=== PATIENT | female | born 1945 | race Caucasian/White ===

== ENCOUNTER → 2023-11-21 09:38 | Outpatient (REF) | payer MEDICARE, OTHER, SELFPAY ==
[2023-11-21 10:18] LABS: % Basophils 0.6 % (0-2); % Eosinophils 1.1 % (0-6); % Immature Granulocytes 0.5 % (0-0.5); % Monocytes 6.5 % (1.7-9.3); % Neutrophils 73.3 % (42.2-75.2); Absolute Basophils 0.1 10^3/uL (0-0.2); Absolute Eosinophils 0.1 10^3/uL (0-0.7); Absolute Lymphocytes 1.5 10^3/uL (1.2-3.4); Absolute Monocytes 0.5 10^3/uL (0.1-0.6); Hematocrit 38.8 % (37.0-47.0); Hemoglobin 13.3 g/dL (12.0-16.0); Mean Corp Hgb Conc. 34.3 g/dL (33.0-37.0); Mean Corpuscular Hgb 28.1 pg (27.0-31.0); Mean Corpuscular Volume 81.9 fL (81.0-99.0); Mean Platelet Volume 9.2 fL (7.4-10.4); Nucleated Red Blood Cells % 0 %; Platelet Count 247 10^3/uL (130-400); Red Blood Cell Count 4.74 10^6/uL (4.20-5.40); White Blood Cell Count 8.2 10^3/uL (4.8-10.8)
[2023-11-21 10:43] LABS: ALT (SGPT) 19 U/L (0-35); AST (SGOT) 27 U/L (14-36); Alkaline Phosphatase 128 U/L (38-126); Blood Urea Nitrogen 21 mg/dl (7-17); Calcium 9.7 mg/dl (8.4-10.2); Carbon Dioxide 23 mmol/L (22-30); Chloride 108 mmol/L (98-107); Glucose 130 mg/dl (70-99); HDL Cholesterol 53 mg/dl; LDL Cholesterol, Calculated 39 mg/dl; Potassium 4.5 mmol/L (3.5-5.1); Sodium 139 mmol/L (135-145); Total Cholesterol 108 mg/dl (50-199); Total Protein 7.9 g/dl (6.3-8.2); Triglyceride 82 mg/dl (10-149); Very Low Density Lipoprotein 16 mg/dl (0-30); eGFR > 60.00
[2023-11-21 12:50] LABS: Glycohemoglobin (HgbA1c) 6.3 % (4.0-5.6)
== END ==
LOC: RAD 09:38
PROVIDERS: ATTENDING PHYSICIAN Physician Assistant
DX: R73.03 Prediabetes (principal); E78.2 Mixed hyperlipidemia; I48.0 Paroxysmal atrial fibrillation; R07.81 Pleurodynia
CPT/HCPCS: 36415; 71111; 80053; 80061; 83036; 85025

== ENCOUNTER → 2023-12-04 11:02 | Outpatient (REF) | payer MEDICARE, OTHER, SELFPAY | LOC: HWRAD 11:02 | PROVIDERS: ATTENDING PHYSICIAN Physician Assistant | DX: R91.8 Other nonspecific abnormal finding of lung field (principal) | CPT/HCPCS: 71260; Q9967 ==

== ENCOUNTER 2024-01-12 02:13 | Inpatient (IN) | payer MEDICARE, OTHER, SELFPAY ==
[2024-01-11 20:37] VITALS: BP 155/92
[2024-01-11 20:56] VITALS: BMI 34.5
[2024-01-11 21:05] LABS: % Basophils 0.7 % (0-2); % Eosinophils 0.4 % (0-6); % Immature Granulocytes 0.6 % (0-0.5); % Lymphocytes 16.1 % (20.5-51.1); % Monocytes 6.2 % (1.7-9.3); Absolute Basophils 0.1 10^3/uL (0-0.2); Absolute Immature Granulocytes 0.1 10^3/uL (0-0.05); Absolute Lymphocytes 1.8 10^3/uL (1.2-3.4); Absolute Monocytes 0.7 10^3/uL (0.1-0.6); Absolute Neutrophils 8.3 10^3/uL (1.4-6.5); Hematocrit 41.3 % (37.0-47.0); Mean Corp Hgb Conc. 33.9 g/dL (33.0-37.0); Mean Corpuscular Volume 82.6 fL (81.0-99.0); Mean Platelet Volume 9.2 fL (7.4-10.4); Nucleated Red Blood Cells % 0 %; Platelet Count 296 10^3/uL (130-400); Red Cell Dist. Width 14.5 % (11.5-14.5); White Blood Cell Count 10.9 10^3/uL (4.8-10.8)
[2024-01-11 21:21] LABS: ALT (SGPT) 16 U/L (0-35); AST (SGOT) 26 U/L (14-36); Albumin 3.9 g/dl (3.5-5.0); Alkaline Phosphatase 134 U/L (38-126); Blood Urea Nitrogen 23 mg/dl (7-17); Calcium 9.6 mg/dl (8.4-10.2); Carbon Dioxide 24 mmol/L (22-30); Chloride 105 mmol/L (98-107); Estimated Creatinine Clearance 74 ml/min; Glucose 126 mg/dl (70-99); Potassium 4.2 mmol/L (3.5-5.1); Sodium 137 mmol/L (135-145); Total Bilirubin 1.2 mg/dl (0.2-1.3); Total Protein 8.2 g/dl (6.3-8.2); eGFR > 60.00
[2024-01-11 21:31] LABS: Troponin I 0.022 ng/ml
[2024-01-11] MEDS: ATIVAN 0.5 MG IV (22:14)
[2024-01-11 22:15] VITALS: BP 130/60
[2024-01-11] MEDS: CARDIZEM 10 MG IV (22:17)
--- NOTE | 2024-01-11 22:50 | ED.GENMED ---
History of Present Illness
General
Chief Complaint: Heart Rate Problem
Source: patient and family
Time Seen by Provider: 01/11/24 21:06
Travel History
Have you had any contact with someone who has COVID-19?: No
Do you have any symptoms of coronavirus? Fever > 100 degrees, chills, cough, shortness of breath, sore throat, loss of taste or smell, muscle aches, or headache?: No
History of Present Illness
History of Present Illness:
78-year-old female with past medical history of hypertension, hyperlipidemia, atrial fibrillation (not anticoagulated), newly diagnosed left lung cancer which patient has decided not to undergo any treatment for, COPD, CVA presenting to the
emergency department from home for evaluation of generally feeling unwell. Patient had an ultrasound at the [facility] and had to stop the procedure about midway through and went home. Upon getting home she told her son that she was not
feeling well and that she needed to come to the emergency department and to call an ambulance. Upon arrival EMS noted patient's heart rate was very rapid and found to be in atrial fibrillation. Patient's son states that she declined to be
anticoagulated and is only taking a 81 mg aspirin. Patient does admit to some slight discomfort in her chest. She states she has not been coughing any more than usual and is denying any hemoptysis, fevers, chills, rigors. Son notes patient did
have some bilateral ankle edema today as well.
Past History
Past History
ED Past Medical History: Arrthythmia (Atrial fib), Cancer, CHF, COPD, CVA, HTN, Hypercholesterolemia, NIDDM and Other (Osteoarthritis,)
ED Past Surgical History: , Gynecological (Tubal ligation) and Orthopedic ( knee arthroscopy, total right knee replacement)
Social History
Tobacco: Former smoker
Alcohol: None
Drug: None
Personal:
Living: with family
Employment: Retired
Review of Systems
Review of Systems
All Other Systems: ROS reviewed and negative except as documented in HPI and ROS
Phy Exam
Physical Exam
Physical Exam:
GENERAL: Alert , in no apparent distress
EYE: pupils equal and reactive
NECK: Supple, no significant adenopathy.
ENT: o/p clr, mmm.
CARDIAC: Irregularly irregular, tachycardic
LUNGS: Diminished lung sounds throughout, mildly tachypneic
ABDOMEN: Soft, without focal tenderness, no r/g, no cvat
NEUROLOGICAL: Alert and oriented, no focal neuro deficits
SKIN: Warm and dry, hyperpigmented and almost ecchymotic skin noted along the left mid to lower back which son noticed 2 days ago but patient is unsure how long this has been there. Nonblanching, nontender and nonraised
MUSCULOSKELETAL: Trace ankle edema bilateral, well perfused.
PSYCH: Normal and appropriate interaction.
Scores
Heart Failure Risk
Heart Failure Risk Score: Not Applicable
Heart Score for Chest Pain Patients
STEMI patient?: Not applicable
Withdrawal Assessment of Alcohol
Withdrawal Assessment Completed?: Not applicable
Course
Orders/Labs/Results
Orders:
Orders
01/11/24 20:34
ECG [Electrocardiogram (*1)] Urgent
Reason for Study: Tachycardia
Other Reason for Exam: left upper back pain
Cardiology Consult: Gopi Solis
01/11/24 20:35
EKG- Treatment ONCE
01/11/24 20:57
Electrocardiogram (*1) Urgent
Reason for Study: Other
Other Reason for Exam: Respiratory Distress
Cardiac Monitoring- Treatment ONCE
EKG- Treatment ONCE
IV Insert/Care/Rem.- Treatment PRN
O2 Therapy [RESP] Urgent
Titrate/Wean O2 to maintain O2 sat greater than (%): 93
Special Instructions: TO MAINTAIN CONTINUOUS O2 SATS >/= 93%
Pulse Ox/cont/shift [RESP] Urgent
Quantity: 1
Special Instructions: continuous pulse ox
01/11/24 20:59
Complete Blood Count/With Diff Urgent
Comprehensive Metabolic Panel Urgent
Troponin I Urgent
01/11/24 21:17
CT Chest Pe Study Urgent
Comment:
Reason For Exam: lung ca, afib, SOB
Diltiazem HCl [Cardizem] 10 mg IV NOW STA
Lorazepam [Ativan] 0.5 mg IV NOW STA
01/12/24 00:39
Oxycodone/Acetaminophen [Percocet 5/325] 1 tablet PO NOW STA
01/12/24 00:44
Morphine Sulfate 2 mg IV NOW STA
01/12/24 00:45
Diltiazem 125 mg/125 ml Nss [Cardizem] 125 mg in 125 ml IV PER PROTOCOL
Initial dose in mg/hr, then titrate:: 5
Titrate to keep:: Heart rate 80-100 bpm
Titrate by mg/hr:: 5 mg/hr
Frequency of titrations (minutes):: 15
Maximum dose in mg/hr:: 15
Abnormal Lab Results
01/11/24
20:59
WBC 10.9 H 10^3/uL
(4.8-10.8)
Abs Immat Gran (auto) 0.1 H 10^3/uL
(0-0.05)
Absolute Neuts (auto) 8.3 H 10^3/uL
(1.4-6.5)
Absolute Monos (auto) 0.7 H 10^3/uL
(0.1-0.6)
Immature Gran % 0.6 H %
(0-0.5)
Neutrophils % 76.0 H %
(42.2-75.2)
Lymphocytes % 16.1 L %
(20.5-51.1)
BUN 23 H mg/dl
(7-17)
Glucose 126 H mg/dl
(70-99)
Alkaline Phosphatase 134 H U/L
(38-126)
01/11/24 20:59
01/11/24 20:59
Vital Signs
Initial and Last Documented VS:
Initial Vital Signs
Temp Pulse Resp BP Pulse Ox
98.3 F 152 23 155/92 96
01/11/24 20:37 01/11/24 20:37 01/11/24 20:37 01/11/24 20:37 01/11/24 20:37
Last Documented Vital Signs
Temp Pulse Resp BP Pulse Ox
98.3 F 114 20 116/70 96
01/11/24 20:37 01/12/24 00:47 01/12/24 00:47 01/12/24 00:47 01/12/24 00:47
MDM/Problems Addressed
Differential Diagnosis Includes:
Progression of lung cancer, pleural effusion, cardiac dysrhythmia, pulmonary embolism, atypical ACS presentation
MDM/Problems Addressed:
78-year-old female presenting to the emergency department for evaluation of generally feeling unwell earlier today, EMS found patient to be in rapid A-fib. On arrival to the emergency department patient's heart rate is persistent 115 and 138 bpm.
Patient is not a cardioversion candidate given she is not anticoagulated. PE also considered given her lung cancer and tachycardia with cough and chest discomfort. Will order CTA of the chest. Cardizem 10 mg IV ordered for rate control. Patient
would likely require admission for continued rate control and further evaluation of her atrial fibrillation
Chronic conditions affecting care: Arrhythmia and Cancer
Acute Exacerbation and/or Progression of Chronic Illness: Arrhythmia and Cancer
*Radiology
Radiology exam reviewed: radiology read reviewed
*Pulse Oximetry
Patient hypoxic: no
*EKG
Interpreted by ED Provider?: Yes
Heart Rate: 139
Rate: tachycardiac
Rhythm: a-fib
Proctor: normal axis
Ischemia: no ischemia
*Tumbler Drier Operator Interpretation
Rate: tachycardiac
Rhythm: a-fib
*Critical Care Note
Total Time (30-74mins, 75-104mins- exclusive of procedures): Not Applicable
Data Reviewed
Review of Other/Old Records Reveals: Labs and Records
Source: patient and family
Patient Management
Discussion with other providers: Hospitalist
Escalation/DeEscalation of care consider admission/obs:
Patient CT shows the following:
No pulmonary embolism, thoracic aneurysm or dissection. Noted mass in the lingula. Cardiomegaly without pericardial effusion. Moderate mediastinal and left hilar lymphadenopathy. There is also now lytic lesion at the T2 vertebral body likely
from metastatic disease.
Patient's heart rate was initially improved with the Cardizem bolus however her heart rate does intermittently go to around 125 beats per minutes will place on the Cardizem drip. Morphine ordered for pain control. Patient to be admitted for
further evaluation and treatment. She will likely require palliative care consultation at some point.
ED Attending Note
-
Portions of this chart may have been created with voice recognition software.� Occasional wrong word or��sound alike� substitutions may have occurred due to the inherent limitations of voice recognition software.
Discharge Plan
Departure
Patient Disposition: Admit
Date of Disposition: 01/12/24
Time of Disposition: 00:45
Presentation/result/management discussed w/ accepting MD/DO: Hospitalist
Discharge Problem:
Atrial fibrillation with rapid ventricular response, Lung cancer metastatic to bone
Prescriptions:
No Action
aspirin 81 MG tablet,delayed release (DR/EC)
81 mg PO DAILY
metoprolol succinate 25 MG tablet extended release 24 hr
50 mg PO BID
Vitamin D (with calcium)
1 tab PO DAILY
atorvastatin 20 MG tablet
20 mg PO QPM Qty: 30 0RF
Referrals:
Carmenza Burns PA-C [Family Provider] -
Interventions
Interventions:
*Risk Screen - Suicide Last Done: 01/11/24 20:50
*General Assessment Last Done: 01/11/24 20:37
*Neglect/Abuse Screening Last Done: 01/11/24 20:37
ED- Fall Risk Assessment Last Done: 01/11/24 20:37
*ED COVID-19 Vaccine History Last Done: 01/11/24 20:37
ED- Cardiac Assessment Last Done: 01/11/24 21:15
ED-Musculoskeletal Assessment Last Done: 01/11/24 21:25
ED- Pulmonary Assessment Last Done: 01/11/24 21:25
Discharge Date and Time
Print Language: DIVEHI
[2024-01-11 23:47] VITALS: BP 123/73
[2024-01-12] VITALS (13 sets, daily range): BP systolic 106–132; BP diastolic 48–91; PULSE 88–140; O2SAT 94; BMI 33.4
[2024-01-12] MEDS: MORPHINE SULFATE 2 MG IV (00:50)
[2024-01-12] MEDS: CARDIZEM 125 IV (00:55)
--- NOTE | 2024-01-12 01:35 | HPS.HSE ---
Family Physician
-
Family Physician: Carmenza Burns PA-C
Chief Complaint
-
fast HR
History of Present Illness
78 y/o F, hx of HTN, HLD, Afib (not on AC by choice), newly diagnoed lung cancer (opted against treatment), COPD, hx of CVA presents with generally feeling unwell. She was at a scheduled US at her PCP office today when she felt unwell and aborted
the US mid-way through. She went home and felt unwell; requested her son call the ambulance. In The ER here, she was found to be in rapid. Afib and cardizem was started. She denies any palpitations, no chest pain or SOB. no other complaints.
Medical History
Past Medical History
Past Medical History: Reports Other (HTN, HLD, Afib (not on AC by choice), newly diagnoed lung cancer (opted against treatment), COPD, hx of CVA)
Past Surgical History: Reports Other ( , Gynecological (Tubal ligation) and Orthopedic ( knee arthroscopy, total right knee replacement))
Social History
Tobacco: Former Smoker
Alcohol: None
Drug: None
Personal:
Living: With Family
Employment: Retired
Family History
Family History: Not pertinent
Allergies / Home Medications
Allergies reflects when Allergies were last updated in [employer].
Home Medications with original date entered in [employer]
Allergy/Medication List:
Allergies
Allergy/AdvReac Type Severity Reaction Status Date / Time
vancomycin Allergy Mild Itching Verified 03/08/23 12:07
NSAIDS (Non-Steroidal Allergy SEE BELOW Verified 03/08/23 12:07
Anti-Inflamma
sulfamethoxazole Allergy Nausea Verified 03/08/23 12:07
[From Bactrim]
tolmetin Allergy Anaphylaxis Verified 03/08/23 12:07
trimethoprim [From Bactrim] Allergy Nausea Verified 03/08/23 12:07
Home Medications
atorvastatin 20 mg tablet 20 mg PO QPM ##30 03/15/19
aspirin 81 mg tablet,delayed release 81 mg PO DAILY Blood clot prevention/tx 11/11/20
Vitamin D (with calcium) 1 tab PO DAILY 01/11/24
metoprolol succinate 25 mg tablet,extended release 24 hr 50 mg PO BID 01/11/24
Review of Systems
-
A 12 point ROS was completed and negative except as noted: Yes
Physical Exam
Vital Signs
Vital Signs
Temp Pulse Resp BP Pulse Ox
98.3 F 114 20 116/70 96
01/11/24 20:37 01/12/24 00:47 01/12/24 00:47 01/12/24 00:47 01/12/24 00:47
Physical Exam
General: Well Developed and Well Nourished
HEENT: NormoCephalic and Anicteric
Respiratory: Decreased Breath Sounds (left upper lobe); No Wheezes or Rales
Cardiac: Irregular Rhythm and Tachycardia
Neuro: AO x 3
Psych: Calm
Laboratory Results
-
01/11/24 20:59
01/11/24 20:59
Laboratory Results
Total Bilirubin 1.2 mg/dl (0.2-1.3) 01/11/24 20:59
AST 26 U/L (14-36) 01/11/24 20:59
ALT 16 U/L (0-35) 01/11/24 20:59
Alkaline Phosphatase 134 U/L (38-126) H 01/11/24 20:59
Troponin I 0.022 ng/ml 01/11/24 20:59
Data Reviewed
-
Lab Data: Labs Reviewed by me
Impression/Plan
-
Assessment:
hx of Parox Afib, now in Rapid ventricular response
Essential HTN
HLD
newly diagnosed lung cancer (opted against treatment)
newly diagnosed T2 lytic lesions likely from metastatic disease
COPD
hx of CVA
Plan:
admit tele
check TSH/T4
continue IV Cardizem infusion
resume BB in the morning
she is on ASA (by preference); refuses OAC
Consult Cardiology
add Oxycodone prn for pain control associated with T2 lytic fracture
DVT ppx: Lovenox
Code: Full
[2024-01-12] MEDS: ROXICODONE 5 MG PO ×2 (05:20→20:01)
[2024-01-12 05:22] LABS: Hematocrit 42.1 % (37.0-47.0); Hemoglobin 13.9 g/dL (12.0-16.0); Mean Corpuscular Hgb 27.5 pg (27.0-31.0); Mean Corpuscular Volume 83.2 fL (81.0-99.0); Mean Platelet Volume 9.2 fL (7.4-10.4); Platelet Count 278 10^3/uL (130-400); Red Blood Cell Count 5.06 10^6/uL (4.20-5.40); Red Cell Dist. Width 14.6 % (11.5-14.5); White Blood Cell Count 11.1 10^3/uL (4.8-10.8)
[2024-01-12 05:43] LABS: Blood Urea Nitrogen 20 mg/dl (7-17); Calcium 9.4 mg/dl (8.4-10.2); Carbon Dioxide 22 mmol/L (22-30); Chloride 106 mmol/L (98-107); Estimated Creatinine Clearance 85 ml/min; Glucose 122 mg/dl (70-99); Potassium 4.5 mmol/L (3.5-5.1); Sodium 137 mmol/L (135-145); eGFR > 60.00
[2024-01-12 06:12] LABS: TSH Reflex To Free T4 2.17 uIU/ml (0.47-4.68)
--- NOTE | 2024-01-12 06:14 | PTCARENOTE ---
pt is aaox3, reports pain- see MAR w/ +eff; pt sleeping in bed. pt is on tele afib [id number]. Cardizem is running at 5. pt is on continuous pulse ox 93% room air. pt is oriented to room w/ call ward in reach
--- NOTE | 2024-01-12 07:30 | W.PN.HOSP.TC ---
Today's Communication/Plan
-
pain control
rate control diuresis as per Cardio
PT/OT
Assessment / Plan
Assessment / Plan
Physical Exam
General: No acute distress
HEENT: NormoCephalic and Anicteric
Respiratory: Clear to auscultation b/l No Wheezes or Rales
Cardiac: Irregular Rhythm and Tachycardia
Neuro: AO x 3
Psych: Calm
78F HTN HLD afib (not on AC by choice) recent dx Lung Ca (opted against treatment )COPD hx CVA here for afib rvr.
Assessment:
hx of Parox Afib, now in Rapid ventricular response
Essential HTN
HLD
newly diagnosed lung cancer (opted against treatment)
newly diagnosed T2 lytic lesions likely from metastatic disease
COPD
hx of CVA
Plan:
Tele
TSH wnl
Cardio eval appreciated
IV Cardizem infusion discontinued, home BB Metoprolol succinate dose increased from 50 mg to 75 mg BID
Recent ECHO appreciated preserved EF 55-60% no significant change from Prior ECHO Aug 2021 noted
BNP elevated
started on diuresis as per Cardio
she is on ASA (by preference); refuses OAC
Oxycodone prn pain control
PT/OT appreciated SNF rehab vs HH (patient not agreeable to SNF)
Discussed with patient and her son JESICA who she lives with, agreeable to outpatient Palliative evaluation.
DVT ppx: Lovenox
Code: DNR/DNI
I spent a total of 56 minutes with the patient or on the floor. More than 50% of this time involved counseling and coordination of care.
Anticipated Discharge: 24 - 48 hours
Subjective/Interval History
-
Date of Service: January 12, 2024
Seen and examined at bedside in no acute distress sitting up comfortably in bed. Reports back pain. Denies palpitations chest pain.
Objective Data
-
Labs:
Laboratory Results
01/11/24 01/12/24
20:59 05:08
WBC 10.9 H 11.1 H
Hgb 14.0 13.9
Hct 41.3 42.1
Plt Count 296 278
Sodium 137 137
Potassium 4.2 4.5
Chloride 105 106
Carbon Dioxide 24 22
BUN 23 H 20 H
Creatinine 0.7 0.6
Glucose 126 H 122 H
Calcium 9.6 9.4
Total Bilirubin 1.2
AST 26
ALT 16
Alkaline Phosphatase 134 H
Vital Signs:
Vital Signs
Temp Pulse Resp BP Pulse Ox
97.8 F 105 22 132/91 92
01/12/24 05:08 01/12/24 05:08 01/12/24 05:08 01/12/24 05:08 01/12/24 06:06
[2024-01-12] MEDS: ASPIR LOW (ENTERIC COATED) 81 MG PO (07:49)
[2024-01-12] MEDS: TOPROL XL 50 MG PO (07:49)
--- NOTE | 2024-01-12 09:04 | CON.CAR ---
Addendum entered and electronically signed by Kyle Combs MD 01/12/24 11:15:
78-year-old woman admitted with permanent atrial fibrillation admitted now with rapid ventricular response. Recently diagnosed with metastatic lung cancer, currently is electing not to seek treatment. Recent CT scan suggesting CHF, proBNP 1310 at
the time of admission. Echocardiography done 429 suggested that EF was overall preserved. Currently, patient is comfortable. Patient not anticoagulated related to personal preference.
Allergies: Vancomycin, NSAIDs, sulfa, tolmetin
Medications as outpatient: Aspirin, atorvastatin, metoprolol
PMH/PSH/SH/FH: Reviewed
Review of systems: Back pain
132/65, pulse 92, respirate 16, afebrile, 96%
Head neck exam unremarkable complaining of back pain, left axillary discomfort to palpation, possibly correlating with lingular mass abutting pleura, irregular rate and rhythm, no obvious murmurs, JVD approximately 8, abdomen benign, extremities
with 1+ nonpitting edema, neuro nonfocal, limited lung exam without obvious abnormality
EKG atrial fibrillation with rapid ventricular response low voltage, cannot exclude anterior [place], nonspecific ST and T changes
Chest CT: 4.9 cm pulmonary mass in lingula extending to left pleural surface, COPD, airspace disease right upper lobe, no pulmonary embolism or dissection, mediastinal and hilar lymphadenopathy, T8 compression fracture, T3 lytic lesion, cardiomegaly
with atrial enlargement, adrenal metastasis
Echo: EF 55-60%, normal RV, normal atria, trace MR, aortic sclerosis mild to moderate TR, pulmonary artery pressure 40 mmHg, limited study based on patient request to terminate study prematurely
White count 11.1 platelets 278, hemoglobin 13.9, BUN/creatinine 20 and 0.6, potassium 4.5, troponin 0.022, proBNP 1310
Assessment:
Permanent atrial fibrillation, now with RVR
Refused anticoagulation
Concern for acute on chronic HFpEF
History of stroke in 2019
ICH associated with stroke 2018
Status post cerebral aneurysm clipping 2018
Seizure versus TIA 06/2019
Concern for moyamoya disease by cerebral angiography 2018
Recently diagnosed metastatic lung cancer, patient refuses treatment
COPD/emphysema
Obesity
PVCs
Prediabetes
Bilateral carotid stenosis
Hyperlipidemia
Former smoker
DNR/DNI code status
ECHO 01/11/24: Difficult study, EF 55 to 60%, no regional wall motion abnormalities noted, mild to moderate TR, PAP 40 mmHg
Plan:
She presents with possible acute on chronic HFpEF related to atrial fibrillation with a rapid ventricular response, in the setting of persistent/permanent atrial fibrillation.
She has a history of cerebral hemorrhage and refuses anticoagulation
It appears she has widely metastatic lung cancer and is not interested in treatment
Her prognosis given all the above is poor, and our strategy should be very conservative.
We will increase metoprolol ER from 50 mg twice daily to 75 twice daily. We could consider diltiazem which may be relatively contraindicated, or digoxin or amiodarone for better rate control.
Will treat with IV Lasix x 1 and then furosemide 20 mg daily as standing dose.
Will need to determine appropriate level of care given patient wishes.
Original Note:
Consultation
Consultation Request
Date/Time Consultation Performed: 01/12/24
Requesting Provider: Dr. Jara
Performing Provider: Annie Anne PA-C for Dr. ALPHONSE Combs
Reason for Consultation: afib with RVR
Medical History
-
Chief Complaint: feeling unwell
History of Present Illness:
Patient is a 78 yo F with PMH of CVA 01/2019 with associated intracranial hemorrhage treated at [facility]. Cerebral angiography showed concern for moyamoya disease. She had A-fib diagnosed during hospitalization. She underwent clipping of cerebral
aneurysm 02/18/[address] Uribe. She then had seizure versus TIA 06/2019. She was recommended switching from aspirin to Plavix but did not do this. She had been cleared for anticoagulation 09/2019 by neurosurgery, however patient continues to
decline. She had previously been on amiodarone as well as digoxin for her atrial fibrillation when initially diagnosed in 2018, however currently is on Toprol 50 mg twice daily and states she has been compliant with this. Recently she was
diagnosed with metastatic lung cancer. She is not following with oncology, and does not wish to have treatment of this. She underwent CT scan 12/04/2023 which showed evidence of moderate CHF. She has been taking p.o. Lasix 20 mg on as needed basis
only for edema. She was ordered echocardiogram which took place 01/11/2024. During study she states she did not feel well and could not continue with study. Fortunately EF was preserved by limited pictures that were completed. She was noted to be
in A-fib at the time of the study. Upon arrival back home she told her son she was feeling unwell and EMS was called. She was noted to be in rapid atrial fibrillation and referred to the emergency room and admitted. Reports weight loss, poor
appetite. denies CP, abd bloating. Cardiology consulted for evaluation
PMH:
Paroxysmal atrial fibrillation
Refused anticoagulation
Chronic diastolic congestive heart failure
History of stroke in 2019
ICH associated with stroke 2018
Status post cerebral aneurysm clipping 2018
Seizure versus TIA 06/2019
Concern for moyamoya disease by cerebral angiography 2019
Recently diagnosed metastatic lung cancer, including compression deformity of T7, patient refuses treatment
COPD/emphysema
Obesity
PVCs
Prediabetes
Bilateral carotid stenosis
Hyperlipidemia
Former smoker
Past Medical History
Past Medical History: Other (in HPI)
Social History
Tobacco: Former Smoker
Alcohol: None
Living: With Family (son)
Employment: Retired
Allergies / Home Medications
Allergy/AdvReac Type Severity Reaction Status Date / Time
vancomycin Allergy Mild Itching Verified 03/08/23 12:07
NSAIDS (Non-Steroidal Allergy SEE BELOW Verified 03/08/23 12:07
Anti-Inflamma
sulfamethoxazole Allergy Nausea Verified 03/08/23 12:07
[From Bactrim]
tolmetin Allergy Anaphylaxis Verified 03/08/23 12:07
trimethoprim [From Bactrim] Allergy Nausea Verified 03/08/23 12:07
�Medication �Instructions �Recorded �Confirmed �Type
atorvastatin 20 mg tablet 20 mg PO QPM ##30 03/15/19 01/11/24 Rx
aspirin 81 mg tablet,delayed 81 mg PO DAILY Blood clot 11/11/20 01/11/24 History
release prevention/tx
Vitamin D (with calcium) 1 tab PO DAILY 01/11/24 01/11/24 History
metoprolol succinate 25 mg 50 mg PO BID 01/11/24 01/11/24 History
tablet,extended release 24 hr
Review of Systems
-
History Source: Patient
All other systems: Negative unless noted
Physical Exam
Vital Signs
Temp Pulse Resp BP Pulse Ox
97.4 F 84 16 111/63 96
01/12/24 07:38 01/12/24 07:38 01/12/24 07:38 01/12/24 07:38 01/12/24 07:38
Lab Results
01/12/24 05:08
01/12/24 05:08
Troponin I 0.022 ng/ml 01/11/24 20:59
Physical Exam
General: No Apparent Distress, Comfortable and Other (temporal wasting)
HEENT: Anicteric and Moist Mucous Membranes
Respiratory: Clear and Non Labored Respirations
Cardiac: S1/S2 and Irregular Rhythm
GI: Soft, Non Tender, Non Distended and Normal Bowel Sounds
Musculoskeletal: No Clubbing, No Cyanosis and Edema (1+ of B/L LE)
Skin: Warm and Dry
Neuro: AO x 3 and Other (slow speech with some word finding difficulty)
Impression / Plan
-
Primary Educational Guidance Counselor: Dr. Solis
Assessment:
Paroxysmal atrial fibrillation, now with RVR
Refused anticoagulation
Concern for acute on chronic diastolic congestive heart failure
History of stroke in 2019
ICH associated with stroke 2019
Status post cerebral aneurysm clipping 2019
Seizure versus TIA 06/2019
Concern for moyamoya disease by cerebral angiography 2018
Recently diagnosed metastatic lung cancer, patient refuses treatment
COPD/emphysema
Obesity
PVCs
Prediabetes
Bilateral carotid stenosis
Hyperlipidemia
Former smoker
DNR/DNI code status
ECHO 01/11/24: Difficult study, EF 55 to 60%, no regional wall motion abnormalities noted, mild to moderate TR, PAP 40 mmHg
Plan:
-Patient presented after feeling unwell yesterday and found to be in atrial fibrillation with rapid ventricular response. known history of PAF.
-Cardiology consulted for evaluation
-Currently on IV Cardizem gtt at 5, and heart rates now well-controlled. Will attempt to increase outpatient Toprol dose from 50 mg twice daily to 75 mg twice daily and stop Cardizem drip. If heart rates remain suboptimal, would consider for
addition of amiodarone versus dig for additional rate control
-She continues to refuse anticoagulation. She remains on 81 mg of aspirin daily
-Recent echo 01/11/2024 with results as above, EF preserved
-Check proBNP. Chest CT from 11/2023 with evidence of moderate CHF. repeat CT 01/11/24 without pleural effusions noted. She is taking p.o. Lasix 20 mg as needed as an outpatient. She likely needs standing dose. consider for dose of IV lasix pending
proBNP
-TSH WNL
-she has some slow speech and word finding difficulty which patient states is her baseline.
-discussed poor prognosis with patient regarding her metastatic lung cancer. she reaffirmed she does not want treatment. she confirms to me she is a DNR/DNI code status, will change in chart as presently listed as full code
-continued goal of care discussions. palliative/comfort care may be most appropriate at this time
Data Reviewed
-
EKG: Tracing Personally Visualized and interpreted
CT Scan: Report Reviewed by me
Medical Tests (Nuc Med, Echo etc): Report Reviewed by me
Labs: Labs Reviewed by me
Old Records: Reviewed
[2024-01-12] MEDS: TOPROL XL 25 MG PO (10:11)
[2024-01-12 10:54] LABS: NT-proBNP 1310 pg/ml
[2024-01-12] MEDS: LASIX 20 MG IV (11:29)
--- NOTE | 2024-01-12 15:01 | CM ---
Reviewed chart, met with patient to obtain information for assessment. Patient stated that her son had questions regarding some poa paperwork that he had brought, however he was gone for the day. Patient stated that her son may be in later today or
tomorrow.
Patient stated that she lives with her son in a two story home with a first floor set up. There are 5 steps to enter. She described herself as in need of supervision with bathing, dressing, all other ADLs and ambulates with a walker at an
Independent level. She relayed that during the day she does not get dressed, she stays in her nightgown.
She can do some soft mud molder, cooking, and her son cleans and does laundry. Her son drives and can get patient to her appointments and does all the shopping.
Patient stated that she has a w/c, a shower chair and grab bars.
She has never had VN services.
She has not been to a SNF in the past.
Patient has a prescription plan and uses the [facility] on [address] [place].
Her PCP is, Carmenza WATTERS.
Patient was very resistant to the idea of a SNF. Reviewed OT/PT. Patient's son works time study technician and there is, per her, no one else who helps support her at home. Will need to discuss indication of SNF with her son.
Plan: Case management will continue to follow and assist with discharge planning. Recommendation is for patient to transfer to a SNF.
[2024-01-12] MEDS: TYLENOL 1000 MG PO ×2 (15:02→21:37)
[2024-01-12] MEDS: LIPITOR 20 MG PO (17:12)
[2024-01-12] MEDS: LOVENOX 40 MG SC (17:12)
[2024-01-12] MEDS: TOPROL XL 75 MG PO (19:49)
[2024-01-13 03:57] VITALS: BP 138/86
[2024-01-13 06:14] LABS: Hematocrit 38.7 % (37.0-47.0); Hemoglobin 12.6 g/dL (12.0-16.0); Mean Corp Hgb Conc. 32.6 g/dL (33.0-37.0); Mean Corpuscular Hgb 27.8 pg (27.0-31.0); Mean Corpuscular Volume 85.4 fL (81.0-99.0); Mean Platelet Volume 9.4 fL (7.4-10.4); Platelet Count 243 10^3/uL (130-400); Red Blood Cell Count 4.53 10^6/uL (4.20-5.40); Red Cell Dist. Width 14.6 % (11.5-14.5)
[2024-01-13 06:52] LABS: Blood Urea Nitrogen 20 mg/dl (7-17); Calcium 9.4 mg/dl (8.4-10.2); Carbon Dioxide 25 mmol/L (22-30); Chloride 101 mmol/L (98-107); Estimated Creatinine Clearance 73 ml/min; Glucose 111 mg/dl (70-99); Phosphorus 5.1 mg/dl (2.5-4.5); Potassium 4.1 mmol/L (3.5-5.1); Sodium 135 mmol/L (135-145); eGFR > 60.00
--- NOTE | 2024-01-13 07:02 | W.PN.HOSP.TC ---
Today's Communication/Plan
-
discharge
Assessment / Plan
Assessment / Plan
Physical Exam
General: No acute distress
HEENT: NormoCephalic and Anicteric
Respiratory: Clear to auscultation b/l No Wheezes or Rales
Cardiac: Irregular Rhythm non-tachy
Neuro: AO x 3
Psych: Calm
78F HTN HLD afib (not on AC by choice) recent dx Lung Ca (opted against treatment )COPD hx CVA here for afib rvr.
Assessment:
hx of Parox Afib, now in Rapid ventricular response
Essential HTN
HLD
newly diagnosed lung cancer (opted against treatment)
newly diagnosed T2 lytic lesions likely from metastatic disease
COPD
hx of CVA
Possible heart failure with preserved ejection fraction
Plan:
Tele
TSH wnl
Cardio eval appreciated
IV Cardizem infusion discontinued, home BB Metoprolol succinate dose increased from 50 mg to 75 mg BID, rate control since improved
Recent ECHO appreciated preserved EF 55-60% no significant change from Prior ECHO Aug 2021 noted
BNP elevated
started on diuresis as per Cardio, patient however refusing standing dose.
she is on ASA (by preference); refuses OAC
Oxycodone prn pain control
PT/OT appreciated SNF rehab vs HH (patient not agreeable to SNF)
Discussed with patient and her son JESICA who she lives with, agreeable to outpatient Palliative evaluation.
DVT ppx: Lovenox
Code: DNR/DNI
discussed with patient, her son Jacoby, Cardiology, and Nurse
Medically stable for discharge home with home services Palliative care and outpatient follow up recommendations.
Total Time Preparing Discharge ___50____ minutes including examination of the patient, summary of the hospital stay, instructions for continuing care to all relevant caregivers; and preparation of discharge records, prescriptions, and referral
forms if necessary.
Anticipated Discharge: Today
Subjective/Interval History
-
Date of Service: January 13, 2024
Seen and examined at bedside no acute distress sitting up comfortably in bed. Pain well controlled with current regimen. Reports feeling well. Eager to go home. Denies new acute issues
Objective Data
-
Labs:
Laboratory Results
01/13/24
05:27
WBC 9.0
Hgb 12.6
Hct 38.7
Plt Count 243
Sodium 135
Potassium 4.1
Chloride 101
Carbon Dioxide 25
BUN 20 H
Creatinine 0.7
Glucose 111 H
Calcium 9.4
Vital Signs:
Vital Signs
Temp Pulse Resp BP Pulse Ox
97.4 F 83 18 138/86 96
01/13/24 03:57 01/13/24 03:57 01/13/24 03:57 01/13/24 03:57 01/13/24 03:57
I&O
01/12/24 01/13/24 01/14/24
06:59 06:59 06:59
Intake Total 660 / 660
Balance 660 / 660
[2024-01-13 07:20] VITALS: BP 139/90
[2024-01-13] MEDS: TOPROL XL 75 MG PO (08:34)
[2024-01-13] MEDS: TYLENOL 1000 MG PO (08:36)
[2024-01-13] MEDS: LASIX 20 MG PO (08:37)
[2024-01-13] MEDS: ASPIR LOW (ENTERIC COATED) 81 MG PO (08:37)
[2024-01-13] MEDS: ROXICODONE 5 MG PO (08:37)
--- NOTE | 2024-01-13 09:19 | W.PN.CARDCBS ---
Today's Communication / Plan
-
She is now rate controlled on increased Toprol. to 75 mg BID. HR and Bp are stable.
She refuses anticoagulation and remains on ASA 81 mg daily.
Echo with preserved EF.
Cont oral lasix as needed. She refuses as standing dose of lasix.
We discussed poor prognosis with patient regarding her metastatic lung cancer. she reaffirmed she does not want treatment. she confirms to me she is a DNR
Continued goal of care discussions. palliative/comfort care may be most appropriate at this time
Please recall if needed.
Impression / Plan
-
Primary Quality Assurance Specialist: Dr. Solis
Assessment:
Paroxysmal atrial fibrillation, HR improved
Refused anticoagulation
Concern for acute on chronic diastolic congestive heart failure
History of stroke in 2018
ICH associated with stroke 2018
Status post cerebral aneurysm clipping 2018
Seizure versus TIA 06/2019
Concern for moyamoya disease by cerebral angiography 2018
Recently diagnosed metastatic lung cancer, patient refuses treatment
COPD/emphysema
Obesity
PVCs
Prediabetes
Bilateral carotid stenosis
Hyperlipidemia
Former smoker
DNR/DNI code status
Noncompliance
ECHO 01/11/24: Difficult study, EF 55 to 60%, no regional wall motion abnormalities noted, mild to moderate TR, PAP 40 mmHg
Plan:
-Patient presented after feeling unwell yesterday and found to be in atrial fibrillation with rapid ventricular response. known history of PAF.
She is now rate controlled on increased Toprol. to 75 mg BID. HR and Bp are stable.
She refuses anticoagulation and remains on ASA 81 mg daily.
Echo with preserved EF.
Cont oral lasix as needed. She refuses as standing dose of lasix.
We discussed poor prognosis with patient regarding her metastatic lung cancer. she reaffirmed she does not want treatment. she confirms to me she is a DNR
Continued goal of care discussions. palliative/comfort care may be most appropriate at this time
Please recall if needed.
Progress Note - Quality Assurance Specialist
Subjective
Date of Service: January 13, 2024
Pt seen and examined. No cp or shortness of breath.
Objective
Labs:
01/13/24 05:27
01/13/24 05:27
Labs
Hgb 12.6 g/dL (12.0-16.0) 01/13/24 05:27
Hct 38.7 % (37.0-47.0) 01/13/24 05:27
Plt Count 243 10^3/uL (130-400) 01/13/24 05:27
Sodium 135 mmol/L (135-145) 01/13/24 05:27
Potassium 4.1 mmol/L (3.5-5.1) 01/13/24 05:27
BUN 20 mg/dl (7-17) H 01/13/24 05:27
Creatinine 0.7 mg/dL (0.6-1.0) 01/13/24 05:27
Glucose 111 mg/dl (70-99) H 01/13/24 05:27
Troponins
01/11/24
20:59
Troponin I 0.022
Vital Signs and I&O:
Vital Signs
Temp Pulse Resp BP Pulse Ox
98.3 F 90 16 139/90 93
01/13/24 07:20 01/13/24 08:37 01/13/24 07:20 01/13/24 08:37 01/13/24 07:20
Vital Signs
Temp Pulse Resp BP Pulse Ox
98.3 F 90 16 139/90 93
01/13/24 07:20 01/13/24 08:37 01/13/24 07:20 01/13/24 08:37 01/13/24 07:20
Intake & Output
01/11/24 01/12/24 01/13/24 01/14/24
06:59 06:59 06:59 06:59
Intake Total 660 / 660
Balance 660 / 660
Physical Exam
Physical Exam
General: No acute distress, AAOX3
Neck: Negative JVD
Heart: Irregularly irregular, Negative S3 positive S1/S2, Negative S4, No murmur
Lungs: CTA b/l, negative wheezes/rales/rhonchi
Abd: Positive BS, NT/ND, neg rebound/rigidity/guarding
Ext: Negative cyanosis/clubbing/edema
Neuro: nonfocal
[2024-01-13 11:32] VITALS: BP 96/69
--- NOTE | 2024-01-13 13:49 | VNURNOTE ---
Home Health Liaison met with patient and son Jacoby at 1300 to discuss [facility] nurse/therapy, visits, schedule and homebound status. Patient is agreeable and understands that visits at home will be 2-3 x per week to assess and teach medical
management. Private caregiver list provided and discussed, son stated that he felt it was not necessary yet but would look into caregiver when needed.
[facility] brochure provided with contact information. Patient is aware that [facility] will contact them for start of care in 1-2 days after discharge from .
[facility] referral completed in [facility].
--- NOTE | 2024-01-13 14:18 | W.DCSUMMARY ---
Discharge Summary
Discharge Data
Date of Admission: 01/12/24
Date of Discharge: 01/13/24
-
Pending Results: No
Hospital Course
78F HTN HLD afib (not on AC by choice) recent dx Lung Ca (opted against treatment) COPD hx CVA here for afib rvr. TSH wnl. Cardio eval appreciated
IV Cardizem infusion discontinued, home BB Metoprolol succinate dose increased from 50 mg to 75 mg BID, rate control since improved. Recent ECHO appreciated preserved EF 55-60% no significant change from Prior ECHO Aug 2021 noted. BNP elevated,
heart failure with preserved ejection fraction, patient was started on diuresis as per Cardio, however she refused standing dose. CT Chest ruled out PE, noted 4.9 cm lingular malignancy is increased in size when compared with the prior study,
Moderate-severe stable mediastinal and left hilar adenopathy, 40% pathologic compression fracture of T8 which is worsened in the interval since the prior study, 3 cm lytic metastasis at T3, new when compared with the prior study, 2.3 cm left adrenal
metastasis worsened in the interval since the prior study. Oxycodone was given for pain control. PT/OT appreciated SNF rehab vs HH (patient not agreeable to SNF). Medically stabilized, patient was discharged home with home services, Palliative
care consultation, and outpatient follow up recommendations.
Discharge Plan
-
Patient Disposition: Home with Home Care
Discharge Diagnosis/Procedures: Atrial Fibrillation with Rapid Ventricular Rate, Heart Failure with Preserved Ejection Fraction, Lung Cancer Metastasis with pathologic compression fractures T8 T3 2.3 cm left adrenal metastasis
Condition: Fair
Diet: Regular
Activity: As tolerated and With Walker
Driving Restrictions: No driving
Bathing Restrictions: None
Other Services: VN, PT and OT
Specialty Instructions: Weigh Daily- Call MD for wt gain/loss 3 lbs overnight/5 lbs in 1 week
Activity Restrictions/Additional Instructions:
Please follow up with primary care provider and palliative care in 1 week of discharge.
Lasix as needed for weight gain (3lbs or more overnight, 5 lbs in 1 week) has been prescribed for heart failure.
Increased dose of metoprolol has been prescribed for better control atrial fibrillation.
Tylenol as needed and Oxycodone have been prescribed for pain control metastatic disease. Oxycodone has been prescribed for 5 day supply.
Laxative has been prescribed as needed for constipation. Opiate pain medications such as oxycodone can cause constipation.
Please take medications as prescribed/recommended and follow up with primary care provider and/or other healthcare provider involved in your care for refills and/or further adjustment to your medication regimen as necessary.
Referrals:
Carmenza Burns PA-C [Family Provider] - in one week
Kyle Combs MD [Active] -
Prescriptions:
New
furosemide 20 mg Tablet
20 mg PO DAILY PRN (Reason: Weight gain) 30 Days Qty: 30 0RF
Rx Instructions:
weight gain 3 lbs or more in 24 hours, 5 lbs or more in 1 weeks
metoprolol succinate 50 mg Tablet Extended Release 24 Hr
75 mg PO BID 30 Days Qty: 90 0RF
sennosides-docusate sodium [Stool Softener-Stimulant Laxat] 8.6-50 mg Tablet
1 tab PO BIDPRN PRN (Reason: constipation) 30 Days Qty: 60 0RF
oxycodone 5 mg Tablet
5 mg PO Q8HPRN PRN (Reason: moderate severe pain) 5 Days Qty: 15 0RF
acetaminophen [Tylenol Extra Strength] 500 mg Tablet
1,000 mg PO TIDPRN PRN (Reason: fever or pain) 30 Days Qty: 180 0RF
Continued
aspirin 81 MG tablet,delayed release (DR/EC)
81 mg PO DAILY
Vitamin D (with calcium)
1 tab PO DAILY
atorvastatin 20 MG tablet
20 mg PO QPM Qty: 30 0RF
Discontinued
metoprolol succinate 25 MG tablet extended release 24 hr
50 mg PO BID
Discharge Orders:
Discharge Patient (As Directed); Ordered 01/13/24
Ordered By: Lulu Eugene
Discharge Date and Time
Discharge Date/Time: 01/13/24 15:24
Print Language: FAROESE
== END 2024-01-13 15:24 | disposition home health service (06) | DRG 308 ==
LOC: 2 SOUTH 02:13
PROVIDERS: ADMITTING PHYSICIAN Internal Medicine; ATTENDING PHYSICIAN Internal Medicine; EMERGENCY PHYSICIAN Emergency Medicine; FAMILY PHYSICIAN Physician Assistant; OTHER PHYSICIAN Internal Medicine Cardiovascular Disease
DX: I48.21 Permanent atrial fibrillation (principal); I50.33 Acute on chronic diastolic (congestive) heart failure; C34.90 Malignant neoplasm of unspecified part of unspecified bronchus or lung; C79.51 Secondary malignant neoplasm of bone; M48.54XA Collapsed vertebra, not elsewhere classified, thoracic region, initial encounter for fracture; C79.72 Secondary malignant neoplasm of left adrenal gland; I11.0 Hypertensive heart disease with heart failure; E78.00 Pure hypercholesterolemia, unspecified; E66.9 Obesity, unspecified; J43.9 Emphysema, unspecified; E11.9 Type 2 diabetes mellitus without complications; M19.90 Unspecified osteoarthritis, unspecified site; I49.3 Ventricular premature depolarization; I65.23 Occlusion and stenosis of bilateral carotid arteries; R59.0 Localized enlarged lymph nodes; Z66 Do not resuscitate; Z86.73 Personal history of transient ischemic attack (TIA), and cerebral infarction without residual deficits; Z79.82 Long term (current) use of aspirin; Z87.891 Personal history of nicotine dependence; Z88.6 Allergy status to analgesic agent; Z88.1 Allergy status to other antibiotic agents; Z88.2 Allergy status to sulfonamides; Z68.33 Body mass index [BMI] 33.0-33.9, adult; Z91.199 Patient's noncompliance with other medical treatment and regimen due to unspecified reason
CPT/HCPCS: 71275; 80048; 80053; 83735; 83880; 84100; 84443; 84484; 85025; 85027; 93005; 93306; 96374; 96375; 96376; 97162; 97167; 99285; Q9967

== ENCOUNTER 2024-01-31 15:38 | Emergency (ER) | payer MEDICARE, OTHER, SELFPAY ==
[2024-01-31 15:42] VITALS: BP 116/78
[2024-01-31 15:46] VITALS: BP 116/78
[2024-01-31 15:50] VITALS: BMI 34.8
[2024-01-31 16:00] VITALS: BP 112/71
--- NOTE | 2024-01-31 16:11 | ED.GENMED ---
History of Present Illness
General
Chief Complaint: Cancer Problem
Source: patient
Exam Limitations: none
Time Seen by Provider: 01/31/24 15:47
Travel History
Have you had any contact with someone who has COVID-19?: No
Do you have any symptoms of coronavirus? Fever > 100 degrees, chills, cough, shortness of breath, sore throat, loss of taste or smell, muscle aches, or headache?: No
History of Present Illness
History of Present Illness:
78-year-old female presents via EMS from home with severe low back pain. She has known lung cancer. She has pathologic compression fractures at her known thoracic spine. She noted increased pain to the lower back without associated injury. She
denies any new onset urinary incontinence or retention. No bowel dysfunction. She denies any perianal anesthesia. No fevers. She is in a diaper due to ambulatory difficulty getting to the bathroom. She is on a regimen of Tylenol 1 g every 8
hours as well as oxycodone 5 mg every 8 hours for pain. She is currently due for her oxycodone. No chest pain. No shortness of breath. No other
Past History
Past History
ED Past Medical History: Arrthythmia (Atrial fib), Cancer, CHF, COPD, CVA, HTN, Hypercholesterolemia, NIDDM and Other (Osteoarthritis,)
ED Past Surgical History: , Gynecological (Tubal ligation) and Orthopedic ( knee arthroscopy, total right knee replacement)
Social History
Tobacco: Former smoker
Alcohol: None
Drug: None
Personal:
Living: with family
Employment: Retired
Phy Exam
Physical Exam
Physical Exam:
General: Well-appearing female no acute respiratory distress
HEENT: Normocephalic atraumatic
Heart: Regular rate and rhythm no murmurs
Lungs: Clear no wheeze
Musculoskeletal exam: Diffuse lower back discomfort
Extremities: No cyanosis or edema
Skin is warm no rash
Neurologic: Good sensation bilateral lower extremities
Course
Orders/Labs/Results
Orders:
Orders
01/31/24 16:10
Oxycodone [Roxicodone] 5 mg PO NOW STA
01/31/24 18:00
Urinalysis Reflex To Culture Urgent
Date Specimen was Collected: 01/31/24
Time Specimen was Collected: 17:59
Urine Microscopic Reflex Cult Urgent
Abnormal Lab Results
01/31/24
18:00
Urine Ketones Trace A
(Negative)
Ur Occult Blood Reflex Trace A
(Negative)
Urine Bilirubin 1+ A
(Negative)
Leukocyte Esterase Rfl Trace A
(Negative)
Vital Signs
Initial and Last Documented VS:
Initial Vital Signs
Temp Pulse Resp BP Pulse Ox
97.8 F 133 20 116/78 95
01/31/24 15:42 01/31/24 15:42 01/31/24 15:42 01/31/24 15:42 01/31/24 15:42
Last Documented Vital Signs
Temp Pulse Resp BP Pulse Ox
97.8 F 112 24 90/52 93
01/31/24 15:42 01/31/24 18:45 01/31/24 16:45 01/31/24 18:00 01/31/24 18:45
MDM/Problems Addressed
Differential Diagnosis Includes:
Lower back pain. No metastatic disease to the spine. Offered x-rays of the back however patient declined. Ordered her 5 mg of oxycodone that she is due for. Check for urinary tract infection. Son in the room. Discussed all this with him as
well. No signs of cauda equina at this time
*Critical Care Note
Total Time (30-74mins, 75-104mins- exclusive of procedures): Not Applicable
Update Note
Update Note:
Patient feeling better after administration of her routine pain medication. Urinalysis is pending. Explained to son that he can increase the oxycodone every 6 hours if needed for pain
ED Attending Note
-
Portions of this chart may have been created with voice recognition software.� Occasional wrong word or��sound alike� substitutions may have occurred due to the inherent limitations of voice recognition software.
Discharge Plan
Departure
Patient Disposition: Home (Routine Discharge)
Date of Disposition: 01/31/24
Time of Disposition: 18:51
Patient with high blood pressure during this ER visit?: No
Discharge Problem:
Back pain
Prescriptions:
No Action
aspirin 81 MG tablet,delayed release (DR/EC)
81 mg PO DAILY
Vitamin D (with calcium)
1 tab PO DAILY
furosemide 20 mg Tablet
20 mg PO DAILY PRN (Reason: Weight gain) 30 Days Qty: 30 0RF
Rx Instructions:
weight gain 3 lbs or more in 24 hours, 5 lbs or more in 1 weeks
metoprolol succinate 50 mg Tablet Extended Release 24 Hr
75 mg PO BID 30 Days Qty: 90 0RF
sennosides-docusate sodium [Stool Softener-Stimulant Laxat] 8.6-50 mg Tablet
1 tab PO BIDPRN PRN (Reason: constipation) 30 Days Qty: 60 0RF
oxycodone 5 mg Tablet
5 mg PO Q8HPRN PRN (Reason: moderate severe pain) 5 Days Qty: 15 0RF
acetaminophen [Tylenol Extra Strength] 500 mg Tablet
1,000 mg PO TIDPRN PRN (Reason: fever or pain) 30 Days Qty: 180 0RF
atorvastatin 20 MG tablet
20 mg PO QPM Qty: 30 0RF
Referrals:
Carmenza Burns PA-C [Family Provider] -
Activity Restrictions/Additional Instructions:
You may increase the oxycodone to every 6 hours if needed for pain. Continue with Tylenol. Please return here for worsening symptoms otherwise follow-up with family doctor
Interventions
Interventions:
*Risk Screen - Suicide Last Done: 01/31/24 15:48
*General Assessment Last Done: 01/31/24 15:50
*Neglect/Abuse Screening Last Done: 01/31/24 15:48
ED- Fall Risk Assessment Last Done: 01/31/24 15:57
*ED COVID-19 Vaccine History Last Done: 01/31/24 15:50
*Nursing Disposition Last Done: 01/31/24 19:56
Discharge Date and Time
Discharge Date/Time: 01/31/24 19:56
Print Language: BARBADIAN
[2024-01-31] MEDS: ROXICODONE 5 MG PO (16:56)
[2024-01-31 17:01] VITALS: BP 119/65
[2024-01-31 18:00] VITALS: BP 90/52
[2024-01-31 18:12] LABS: Urine Albumin Trace (Neg - Trace); Urine Bilirubin 1+ (Negative); Urine Character Clear (Clear); Urine Color Yellow; Urine Glucose Negative (Negative); Urine Ketone Trace (Negative); Urine Leukocyte Trace (Negative); Urine Nitrite Negative (Negative); Urine Occult Blood Trace (Negative); Urine Specific Gravity 1.025 (<1.030); Urine Urobilinogen 1+ (Neg - 1+)
[2024-01-31 18:38] LABS: Urine Red Blood Cell 0-2 /HPF (0-2); Urine White Cell 0-2 /HPF (0-5)
== END 2024-01-31 19:56 | disposition home or self-care (01) ==
LOC: EMR 15:38
PROVIDERS: Physician Assistant; EMERGENCY PHYSICIAN Emergency Medicine; FAMILY PHYSICIAN Physician Assistant
DX: M54.50 Low back pain, unspecified (principal); Z87.891 Personal history of nicotine dependence
CPT/HCPCS: 99283; 81003; 81015